=== PATIENT | male | born 1945 | race Caucasian/White ===

== ENCOUNTER 2022-09-13 07:26 | Day surgery (SDC) | payer MEDICARE ==
[~2022-09-13] VITALS: Ht 185.4 cm; Wt 111.1 kg
[~2022-09-13 07:26] MED LIST: ASPIRINCHW 81MG PO; CHLORTHALIDONE25 MG PO; GLUCOSAMINE1 TA1 PO; LISINOPRIL10 MG PO; MULTI VIT PO; NORVASC PO; TOPROL XL25 M1 PO
[2022-09-13 11:14] VITALS: BP 112/64
== END 2022-09-13 10:20 | disposition home or self-care (01) ==
LOC: ORM 07:26
PROVIDERS: ATTEND Urology
PROC: 0VB03ZX Excision of Prostate, Percutaneous Approach, Diagnostic (ICD-10-PCS; principal; 2022-09-13)
DX: C61 Malignant neoplasm of prostate (principal); I10 Essential (primary) hypertension; E11.9 Type 2 diabetes mellitus without complications; E78.5 Hyperlipidemia, unspecified; Z86.010 Personal history of colon polyps; Z20.822 Contact with and (suspected) exposure to COVID-19
CPT/HCPCS: J1956

== ENCOUNTER 2022-10-31 08:50 | Day surgery (SDC) | payer MEDICARE ==
[~2022-10-31] VITALS: Ht 185.4 cm; Wt 111.1 kg
[~2022-10-31 08:50] MED LIST changes: +BACTRIM DS1 TAB PO
[2022-10-31 11:43] VITALS: BP 118/68
== END 2022-10-31 12:15 | disposition home or self-care (01) ==
LOC: ENDO 08:50
PROVIDERS: ATTEND Surgery
PROC: 0DJD8ZZ Inspection of Lower Intestinal Tract, Via Natural or Artificial Opening Endoscopic (ICD-10-PCS; principal; 2022-10-31)
DX: Z12.11 Encounter for screening for malignant neoplasm of colon (principal); K57.30 Diverticulosis of large intestine without perforation or abscess without bleeding; K64.4 Residual hemorrhoidal skin tags; K64.8 Other hemorrhoids; I10 Essential (primary) hypertension; Z86.010 Personal history of colon polyps